=== PATIENT | male | born 1960 | race Caucasian/White ===

== ENCOUNTER 2021-10-16 12:12 | Inpatient (IN) | payer OTHER ==
[~2021-10-16] VITALS: Ht 172.7 cm; Wt 68.7 kg
[2021-10-16 14:09] LABS: EOSINOPHILS % (AUTO) 5.1 % (1.0-6.0); HEMATOCRIT 39.2 % (41-53); HEMOGLOBIN 12.8 g/dL (13.5-17.5); LYMPHOCYTES # (AUTO) 1.8 K/uL (1.0-4.8); LYMPHOCYTES % (AUTO) 24.6 % (22.0-44.0); MEAN CORPUSCULAR HEMOGLOBIN 26.4 pg (26.0-34.0); MEAN CORPUSCULAR HGB CONC 32.6 G/dL (31.0-37.0); MEAN CORPUSCULAR VOLUME 81 fL (80-100); MONOCYTES # (AUTO) 0.4 K/uL (0.1-1.0); MONOCYTES % (AUTO) 5.9 % (2.0-9.0); NEUTROPHILS # (AUTO) 4.6 K/uL (1.8-7.7); NEUTROPHILS % (AUTO) 63.4 % (40.0-70.0); PLATELET COUNT (AUTO) 265 K/uL (150-450); RED BLOOD CELL COUNT(AUTO) 4.84 MIL/uL (4.50-5.90); RED CELL DISTRIBUTION WIDTH 17.2 % (11.5-14.5)
[2021-10-16 14:24] LABS: B-TYPE NATRIURETIC PEPTIDE 228 pg/mL (0-100)
[2021-10-16 14:26] LABS: D-DIMER 0.22 mg/L FEU (0.00-0.50); INR 1.1 (0.9-1.1); PROTHROMBIN TIME 11.3 SEC (9.4-11.6)
[2021-10-16 14:27] LABS: ANION GAP 7 mmol/L (8-16); CALCIUM, TOTAL 8.3 mg/dL (8.8-10.5); CARBON DIOXIDE 27 mmol/L (22-29); CHLORIDE 104 mmol/L (98-107); CREATININE 1.01 mg/dL (0.60-1.30); GLOMERULAR FILTR. RATE CALC > 60 mL/min (>60); GLUCOSE,RANDOM 96 mg/dL (70-110); POTASSIUM 4.1 mmol/L (3.5-5.1); SODIUM SERUM 138 mmol/L (136-145); UREA NITROGEN, BLOOD 12 mg/dL (7-18)
[2021-10-16 14:48] LABS: APPEARANCE,URINE CLEAR (CLEAR); BILIRUBIN,URINE NEGATIVE (NEGATIVE); GLUCOSE, URINE (UA) NEGATIVE (NEGATIVE); KETONES,URINE NEGATIVE (NEGATIVE); LEUKOCYTE ESTERASE ,URINE NEGATIVE (NEGATIVE); NITRATE,URINE NEGATIVE (NEGATIVE); OCCULT BLOOD,URINE NEGATIVE (NEGATIVE); PH,URINE 5.5 (5.0-8.0); PROTEIN,URINE NEGATIVE (NEGATIVE); SPECIFIC GRAVITIY, URINE 1.021 (1.003-1.030); UROBILINOGEN,URINE <=1.0 mg/dL (<=1.0)
[2021-10-16 14:51] LABS: ALANINE AMINOTRANSFERASE 28 U/L (12-78); ALBUMIN 3.6 g/dL (3.4-5.0); ALKALINE PHOSPHATASE 60 U/L (46-116); ASPARTATE AMINOTRANSFERASE 22 U/L (15-37); BILIRUBIN,TOTAL 0.6 mg/dL (0.1-1.0); CREATINE KINASE, TOTAL ONLY 122 U/L (39-308); TOTAL PROTEIN, SERUM 7.3 g/dL (6.4-8.2)
[2021-10-16 16:49] LABS: COVID AG,FIA SOURCE NASAL SWAB
[2021-10-16] MEDS ORDERED: ATROPINE SULFATE 0.1 MG/ML 10 ML SYRINGE IVP PRN (19:00)
[2021-10-16] MEDS: ASPIRIN 81 MG CHEWABLE TABLET PO SCH (21:16)
[2021-10-16] MEDS: MAGNESIUM OXIDE 400 MG TABLET PO SCH (21:16)
[2021-10-16] MEDS: ATORVASTATIN CALCIUM 20 MG TABLET PO SCH (21:17)
[2021-10-16 21:55] VITALS: BP 106/51
[2021-10-16 23:35] VITALS: BP 124/51
[2021-10-17] VITALS: BP 122/54
[2021-10-17] MEDS: HEPARIN SODIUM,PORCINE 5,000 UNITS/ML VIAL SQ SCH ×4 (00:16→23:51)
[2021-10-17] MEDS: MAGNESIUM OXIDE 400 MG TABLET PO SCH (02:12)
[2021-10-17 04:00] VITALS: BP 122/40
[2021-10-17 08:00] VITALS: BP 139/56
[2021-10-17] MEDS ORDERED: MAGNESIUM OXIDE 400 MG TABLET PO ONE (10:45)
[2021-10-17 12:00] VITALS: BP 105/42
[2021-10-17] MEDS: ASPIRIN 81 MG CHEWABLE TABLET PO SCH (21:54)
[2021-10-17] MEDS: ATORVASTATIN CALCIUM 20 MG TABLET PO SCH (21:54)
[2021-10-17 23:01] VITALS: BP 124/44
[2021-10-18 04:59] VITALS: BP 119/65
== END 2021-10-18 07:15 | DRG 309 ==
LOC: EMS 12:20 → ICU 21:29 → 5S 10-17 22:38
PROVIDERS: ADMIT Internal Medicine; ATTEND Internal Medicine
DX: I49.5 Sick sinus syndrome (principal); E44.0 Moderate protein-calorie malnutrition; J44.9 Chronic obstructive pulmonary disease, unspecified; D64.9 Anemia, unspecified; I44.30 Unspecified atrioventricular block; R07.9 Chest pain, unspecified; I70.0 Atherosclerosis of aorta; Z20.822 Contact with and (suspected) exposure to COVID-19; F15.90 Other stimulant use, unspecified, uncomplicated; Z87.891 Personal history of nicotine dependence; I25.2 Old myocardial infarction; Z98.61 Coronary angioplasty status; Z68.23 Body mass index [BMI] 23.0-23.9, adult
CPT/HCPCS: 71045; 72050; 80053; 81003; 82550; 83735; 83880; 84484; 85025; 85379; 85610; 85730; 87081; 93005; 93306; 99285; G0378; J0461; J1644; 36415-L1; 36415-TC